=== PATIENT | female | born 2000 | race Caucasian/White ===

== ENCOUNTER 2022-07-06 19:18 | Emergency (ER) | payer BC, SELFPAY ==
--- NOTE | 2022-07-06 19:26 | ED.URI ---
HPI - URI/Sore Throat General Chief Complaint: Upper Respiratory Infection Stated Complaint: Sore Throat Source: patient Mode of arrival: ambulatory Limitations: no limitations History of Present Illness HPI Narrative: This is a 22 year old female that presents to urgent care complaining of a sore throat. Patient states that she has had the sore throat for the past few days and she has taken some cough drops and she continues to feel worse. Patient states she has taken cough drops. Patient states that strep is going around and she wanted to be checked out. Related Data Allergies Allergy/AdvReac Type Severity Reaction Status Date / Time No Known Allergies Allergy Verified 07/06/22 19:20 Review of Systems Review of Systems: sore throat PMFSH Comments At time as signature, I have reviewed and agree with nursing past medical, social, surgical and family history. Please see nursing chart for further information. There is no relevant family history pertinent to the presenting complaint. Exam Narrative: GENERAL:Well-appearing, well-nourished, and in no acute distress. HEAD:Normocephalic, atraumatic. EYES: PERRLA ENT: Nares clear, no rhinorrhea or epistaxis. Mucous membranes moist. Pharyngeal erythema enlarged tonsils with pus pockets enlarged lymph nodes in the right bed with their skin through a lot of CHEST: Clear to auscultation. No respiratory distress. HEART: Regular rate and rhythm. ABDOMEN: Soft, nontender, nondistended, normal active bowel sounds. EXTREMITIES: Normal range of motion. No edema. SKIN: Warm, dry, no rash. NEURO: No focal deficits. Alert and oriented x3. Course Course Emergency Course: Strep ne Level of Care: Express Care Visit Vital Signs Vital signs: Vital Signs Temperature 98.3 F 07/06/22 19:32 Pulse Rate 97 07/06/22 19:32 Respiratory Rate 18 07/06/22 19:32 Blood Pressure 147/89 H 07/06/22 19:32 Pulse Oximetry 99 07/06/22 19:32 Oxygen Delivery Room Air 07/06/22 19:32 Temperature 98.3 F 07/06/22 19:32 Pulse Rate 97 07/06/22 19:32 Respiratory Rate 18 07/06/22 19:32 Blood Pressure 147/89 H 07/06/22 19:32 Pulse Oximetry 99 07/06/22 19:32 Oxygen Delivery Room Air 07/06/22 19:32 Discharge Plan Discharge Clinical Impression: Pharyngitis, Exudative tonsillitis Patient Disposition: Home, Self-Care Condition: Stable Instructions: Antibiotic Form, Tonsillitis (ED) Additional Instructions: Your strep test today was negative. A throat culture will be sent to the laboratory for further testing. IF the test is positive, you will receive a phone call within 48 hours and an appropriate antibiotic will be initiated at that time. You will not receive a phone call if the test is negative. Until the throat culture proves otherwise, you should proceed with treating this is as a viral pharyngitis. Salt water gargles may alleviate some of your throat discomfort. Take Tylenol and/or ibuprofen per the package instructions for pain/fever. Go to the ER if your symptoms become worse of if ANY new symptoms develop Prescriptions: New amoxicillin 500 mg capsule 500 mg PO Q12H Qty: 20 0RF Follow-up/Referrals: PHYSICIAN,[facility] [Primary Care Provider] - Stand Alone Forms: Work/School Release IP Time of Disposition: 19:47
[2022-07-06 19:32] VITALS: BP 147/89; PULSE 97; RESP 18; TEMP 36.8; O2SAT 99
== END 2022-07-06 19:56 | disposition home or self-care (01) ==
PROVIDERS: Emergency Provider Nurse Practitioner Family
DX: J02.9 Acute pharyngitis, unspecified (principal); Z86.16 Personal history of COVID-19; F41.9 Anxiety disorder, unspecified; F32.A Depression, unspecified; F42.9 Obsessive-compulsive disorder, unspecified
CPT/HCPCS: 87081; 87880; 99213; G0463